=== PATIENT | female | born 1985 | race African-American/Black ===

== ENCOUNTER 2016-05-30 23:44 | Emergency (ER) | payer OTHER, MEDICAID ==
[~2016-05-30] VITALS: Ht 180.3 cm; Wt 100.0 kg
[~2016-05-30 23:44] MED LIST: AMOX250S3 PO; BENZ100 PO; DEPA500T3 PO; FLUT1SPR9; IPRA0.03
[2016-05-30 23:46] VITALS: BP 114/66; PULSE 83; RESP 16; TEMP 98.2; O2SAT 98
== END 2016-05-31 00:18 | disposition left against medical advice (07) ==
LOC: NED 23:44
DX: R68.89 Other general symptoms and signs (principal)
CPT/HCPCS: 99281